=== PATIENT | female | born 1955 | race African-American/Black ===

== ENCOUNTER 2019-02-23 19:32 | Inpatient (IN) | payer OTHER ==
[~2019-02-23 19:32] MED LIST: Iopamidol-370 76% 500 ML 1 ML ONE
[2019-02-23] MEDS ORDERED: Rocuronium Bromide 50 MG/5 ML VIAL ONE ×2 (19:35→19:38)
[2019-02-23] MEDS ORDERED: fentaNYL Citrate/PF 2,000 MCG in Sodium Chloride 0.9% 60 ML IV SCH ×2 (19:54→23:17)
--- NOTE | 2019-02-23 20:03 | RAD ---
EXAM: CHEST ONE VIEW HISTORY: Altered mental status. Post endotracheal tube and central line placement. COMPARISON: None FINDINGS: Endotracheal tube is noted in place with the tip overlying the T3-4 level and above the level of the haresh. A nasogastric tube is noted in place which courses into the left upper quadrant. A left subclavian central venous catheter is noted in place with tip overlying the expected location of the SVC. No pneumothorax is seen allowing for supine positioning of the patient which does limit evaluation. There is mild prominence of the bronchovascular markings secondary to shallow depth of in spiration and portable technique. Mild atelectasis is present at the left lung base. The lungs are otherwise clear. Mild degenerative changes are seen in the spine. There is right glenohumeral osteoar thropathy. Vascular calcifications are seen in the thoracic aorta. IMPRESSION: 1. No acute cardiopulmonary process. 2. Lines and tubes in place as described above. No pneumothorax is seen on this supine exam which prajapati s limit evaluation for a pneumothorax.
[2019-02-23 20:08] LABS: Hemoglobin 8.5 g/dL (12.0-16.0); Mean Corpuscular Volume 96.8 fL (78.0-98.0); Mean Platelet Volume 7.4 fL (7.4-10.4); Platelet Count 363 thou/uL (130-400); RBC Distribution Width 17.8 % (11.5-14.5); Red Blood Cell (RBC) Count 2.75 mill/uL (4.20-5.40); White Blood Cell (WBC) Count 20.1 thou/uL (4.8-10.8)
[2019-02-23 20:10] LABS: Actual Bicarbonate (HCO3a) 26.8 mEq/L (22-28); Analyzer IN Cardio ER; Base Excess (BEa) 2.6 mEq/L (-2.0 to +3.0); CO2 Tension 39.6 mmHg (35.0-45.0); Calcium, Ionized 1.21 mmol/L (1.12-1.30); Carboxyhemoglobin (COHb) 3.8 gm% (0.0-3.0); Hemoglobin (Hb) 9.3 g/dL (12.0-16.0); O2 Tension (PaO2) 117.6 mmHg (> 80.0); Potassium - ABG Lab 3.74 mmol/L (3.70-5.30); pH, Arterial 7.45 (7.35-7.45)
[2019-02-23 20:15] LABS: PTT 27.4 SEC (22.9-36.1); Prothrombin Time 13.3 SEC (12.0-14.7)
[2019-02-23 20:22] LABS: Bacteria/HPF None Seen HPF (None Seen); Bilirubin Negative (Negative); Blood, Urine Negative (Negative); Clarity Clear (Clear); Glucose, Urine (Dipstick) Normal (Negative); Leukocyte Negative Leu/uL (Negative); Nitrite Negative (Negative); Protein, Urine (Dipstick) 30 mg/dL (Neg-Trace); RBC/HPF 0-3 HPF (0-3); Squamous Epithelial None Seen HPF (0-3); Urobilinogen Normal mg/dL (Less than 2); WBC/HPF 0-3 HPF (0-3)
[2019-02-23] MEDS ORDERED: Fentanyl 100 MCG/2 ML VIAL ONE (20:22)
[2019-02-23 20:29] LABS: Anisocytosis MODERATE=16-30 cells (100X) (0-5/hpf); Band 7 % (5-11); Eosinophils 1 % (0-10); Helmet Cells SLIGHT = 2-5 cells (100X) (0-1/hpf); Lymphocytes 24 % (21-51); MDiff Complete? YES; Metamyelocyte 1 % (0-0); Monocytes 1 % (0-10); Neutrophil 66 % (42-75); Nucleated RBC 1 % (0); Ovalocytes SLIGHT = 2-5 cells (100X) (0-1/hpf); Poikilocytosis MODERATE=16-30 cells (100X) (0-5/hpf); Schistocytes SLIGHT = 2-5 cells (100X) (0-1/hpf); Tear Drops SLIGHT = 2-5 cells (100X) (0-1/hpf)
[2019-02-23 20:30] LABS: Amphetamine Not Detected (NotDetected); Barbiturates Screen Not Detected (NotDetected); Benzodiazepine Screen Not Detected (NotDetected); Cocaine Metabolite Screen Not Detected (NotDetected); Medtox Control Line Valid? VALID (VALID); Medtox Reader # READER 4; Methadone Not Detected (NotDetected); Methamphetamine Not Detected (NotDetected); Opiate Screen Not Detected (NotDetected); Oxycodone Screen Not Detected (NotDetected); Phencyclidine (PCP) Not Detected (NotDetected); THC/Cannabinoid Screen Detected (NotDetected); Tricyclic Screen Not Detected (NotDetected)
[2019-02-23 20:31] LABS: ALT (SGPT) 40 U/L (8-55); AST (SGOT) 12 U/L (5-34); Albumin 3.4 g/dL (3.4-4.8); Alkaline Phosphatase 86 U/L (40-110); Anion Gap 15 mmol/L (10-20); BUN (Urea Nitrogen) 37 mg/dL (9.8-20.1); Bilirubin, Total 0.2 mg/dL (0.2-1.2); CK (CPK) 32 U/L (29-168); Calc. Creatinine Clearance 0 mL/min (70-130); Calcium 9.2 mg/dL (7.8-10.44); Carbon Dioxide 25 mmol/L (23-31); Chloride 104 mmol/L (98-107); Estimated GFR-MDRD 58; Globulin 1.9 g/dL (2.4-3.5); Glucose 97 mg/dL (80-115); Potassium 4.1 mmol/L (3.5-5.1); Protein, Total 5.3 g/dL (6.0-8.3); Sodium 140 mmol/L (136-145)
[2019-02-23 20:37] LABS: Acetaminophen Less than 6.0 mcg/mL (10.0-30.0); Alcohol Less than 10 mg/dL (Less than 10); Lipase 25 U/L (8-78); Salicylate Less than 8.0 mg/dL (15.0-30.0)
[2019-02-23] MEDS ORDERED: Cefepime 2 GM VIAL ONE (20:52)
[2019-02-23] MEDS ORDERED: Propofol 1,000 MG/100 ML VIAL IV ONE (21:05)
[2019-02-23] MEDS ORDERED: Dexamethasone 4 mg/ml Vial ONE (21:25)
[2019-02-23] MEDS ORDERED: Midazolam HCl 5 mg/ml Vial ONE ×2 (21:25→21:58)
--- NOTE | 2019-02-23 21:38 | CT ---
CT BRAIN: 02/23/2019 PROVIDED CLINICAL HISTORY: Altered mental status. COMPARISON: None. FINDINGS: The ventricular system is normal in size and morphology. There is no evidence for intracranial hemorr jackson or mass effect. There is opacification of the nasal cavity and the visualized nasopharynx as wel l as partial opacification of the ethmoid air cells. The extracranial soft tissues and osseous struc tures appear otherwise unremarkable. IMPRESSION: No evidence for intracranial hemorrhage or mass effect. POS: [facility]
--- NOTE | 2019-02-23 21:41 | CT ---
CT ANGIOGRAM THORAX WITH IV CONTRAST AND 3D RECONSTRUCTIONS: HISTORY: Altered mental status. In and out of consciousness. Low blood pressure. COMPARISON: None. FINDINGS: No filling defects are seen within the central or segmental pulmonary arteries to suggest a pulmonary embolus. Vascular calcifications are seen in the coronary arteries as well as involving the thoracic aorta. The thoracic aorta is normal in caliber without evidence of an aortic dissection. An endotracheal tube is noted in place with the tip above the level of the haresh. Nasogastric tube i s noted in place, which courses into the stomach but is incompletely imaged. The stomach is distended with fluid and particulate matter, likely related to recent ingestion of a meal. There is no evidence of lymphadenopathy. There are mild ground glass densities in the upper lobes bilaterally with linear and minimal patchy d ensities at each lung base, probably related to scattered areas of atelectasis. No consolidation or p leural effusion is seen. There is no pneumothorax identified. There is bilateral glenohumeral osteoarthropathy, greater on the right. Degenerative changes are seen in the spine. IMPRESSION: 1. No CT evidence of pulmonary embolus involving the central or segmental pulmonary arteries. 2. Prominent vascular calcifications in the coronary arteries as well as involving the thoracic aorta . 3. Mild cardiomegaly. 4. Endotracheal tube and nasogastric tube in place. POS: [facility]
[2019-02-23] MEDS ORDERED: Fentanyl BOLUS 250 ML IVPB PRN (23:17)
[2019-02-23] MEDS ORDERED: Lorazepam 2 MG/ML VIAL SLOW IVP PRN (23:17)
[2019-02-23] MEDS ORDERED: Propofol BOLUS 1,000 MG/100 ML VIAL IV PRN (23:17)
[2019-02-23] MEDS ORDERED: Morphine 2 MG/ML SYRINGE SLOW IVP PRN (23:17)
--- NOTE | 2019-02-23 23:32 | HP ---
PRIMARY CARE PHYSICIAN: Dr. Green, located with [facility]. CHIEF COMPLAINT: Altered mental status and decreased responsiveness. 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 History is limited and obtained from ER physician and from spouse at bedside. Apparently, the patient had systolic blood pressure of 60s in the field. In the ER, she continued to remain hypotensive and was intubated for airway protection. She received IV Decadron as well as 1 L normal saline bolus with blood pressure normotensive thereafter. Blood cultures were obtained, left subclavian triple-lumen catheter was placed, and patient was empirically administered Levaquin, cefepime, and placed on propofol for sedation. ABG post intubation was unremarkable. CBC revealed a white blood cell count of 20.1 with a BUN and creatinine of 37/1.14. Toxicology screen was positive for cannabis. Salicylate and Tylenol levels and urinalysis were unremarkable. CTA chest was also unremarkable. At bedside, the patient is intubated and sedated. She is accompanied by spouse who provides a limited history. Spouse denies any recent illnesses or changes in patient's medications except for steroid decreased. Once again, spouse notes patient took a 20 mg tablet of prednisone yesterday instead of her tapered 40 mg dosage. He notes the patient has been nauseated, but with no reported vomiting, diarrhea, or dysuria. No prior similar complaints. Coagulation profile was unremarkable. PAST MEDICAL HISTORY: Suspected giant-cell arteritis with recent biopsy 2 weeks ago, chronically maintained on oral prednisone for the past 2 months, initially 60 mg per day, recently decreased 2 weeks ago to 40 mg per day, morbid obesity, hypertension, dyslipidemia. PAST SURGICAL HISTORY: Cholecystectomy, recent right temporal artery biopsy. SOCIAL HISTORY: The patient is , lives at home with the spouse. No reported tobacco or alcohol use. ALLERGIES: NONE. REVIEW OF SYSTEMS: Unable to obtain as patient is intubated. HOME MEDICATIONS: Will be reviewed once admission medication reconciliation is reconciled. FAMILY HISTORY: No chronic medical comorbidities reported in the family members. PHYSICAL EXAMINATION: VITAL SIGNS: Temperature 97.2, pulse 98, sinus rhythm, blood pressure currently 124/73, reportedly systolic blood pressure of 60s in the field and initial documented blood pressure in the ER 185/79, oxygen saturation 99% on ventilator, respirations 16 to 18. GENERAL APPEARANCE: This is an elderly female, who is intubated and sedated and intermittently restless. HEENT: Normocephalic, atraumatic. No obvious facial asymmetry. There is a healing scar in the right uatsdin. Positive ET tube and OG tube noted. CARDIOVASCULAR: S1, S2. Regular rate and rhythm. No harsh murmurs. No reproducible chest wall tenderness. There is a left subclavian triple-lumen catheter, appearing clean and intact. LUNGS: Bilateral equal air entry on anterior auscultation. Nonlabored respirations. No wheezing or rales. ABDOMEN: Soft, nontender, nondistended. EXTREMITIES: No appreciable edema in the lower extremities. No cyanosis or deformities noted. SKIN: Warm to touch without rash or pallor or abrasion. GENITOURINARY: Indwelling Norris catheter with yellow-colored urine. LABORATORY VALUES: WBC 20.1, hemoglobin and hematocrit 8.5/26.6, and platelets 363. Sodium 140, potassium 4.1, chloride 104, bicarb 25, glucose 97, BUN and creatinine 37/1.14, total protein 5.3, albumin 3.4. LFTs unremarkable. Ammonia 22. Urinalysis negative. Urine drug screen positive for cannabis. Salicylate level less than 8. Tylenol level less than 6. ABG post intubation; 7.45/118/40/93 [place] [address]/40/5. IMAGING: CTA chest negative for pulmonary embolism. Noncontrast head CT negative for any acute intracranial pathology. ASSESSMENT: 1. Acute encephalopathy of unclear etiology. The patient intubated in the emergency room for airway protection with noted decreased responsiveness and reported hypotension on admission. She is currently intubated and sedated. ICU physician has been consulted for ventilator management. She received IV steroids noting concerns for secondary adrenal insufficiency and has received IV Decadron in the ER with normotensive blood pressure readings. Furthermore, she has had blood cultures obtained and administered IV fluids and empiric IV antibiotics, and we will continue to monitor for any possible infectious etiologies. 2. Ventilator-dependent respiratory failure. Patient intubated for airway protection due to encephalopathy. ICU doctor consulted for ventilator management. 3. Hypotension, resolved. Possibly secondary to secondary adrenal insufficiency as patient is on chronic steroids for suspected giant-cell arteritis. The patient was recently tapered to 40 mg once daily after one month of 60 mg once daily, but only took half the dose one day prior. We will continue daily prednisone at home dose. 4. History of recent suspected giant-cell arteritis. The patient underwent recent temporal artery biopsy results unknown. She has been currently maintained on oral prednisone, which will be continued. 5. History of hypertension. The patient was initially hypotensive, but is now normotensive. We will monitor blood pressure. 6. Morbid obesity, unspecified BMI. Gastrointestinal prophylaxis: Start IV Pepcid, noting chronic steroid use and to minimize stress ulcers. Deep venous thrombosis prophylaxis: Low-molecular weight heparin. Check a.m. labs, 02/24/2019. CODE STATUS: Full code. DISPOSITION: The patient will be admitted as inpatient status to ICU. Plan of care discussed with the patient's spouse, Stanislav at bedside in the ER. Job ID: [id number] MTDD
[2019-02-23 23:56] VITALS: BMI 40.2
[2019-02-24] MEDS ORDERED: Famotidine/PF 20 mg/2ml Vial SLOW IVP SCH (00:15)
[2019-02-24] MEDS: Propofol 1,000 MG/100 ML VIAL IV PRN ×4 (00:43→08:54)
[2019-02-24 02:04] LABS: Troponin I Less than 0.010 ng/mL (< 0.028)
[2019-02-24 04:40] LABS: #Basophils 0.1 thou/uL (0.0-0.2); #Eosinphils 0.1 thou/uL (0.0-0.7); #Monocytes 0.3 thou/uL (0.11-0.59); #Neutrophils 12.7 thou/uL (1.40-6.50); %Basophils 0.4 % (0.0-1.0); %Eosinophils 0.4 % (0.0-10.0); %Lymphocytes 18.4 % (21.0-51.0); %Neutrophils 78.7 % (42.0-75.0); Hemoglobin 7.8 g/dL (12.0-16.0); Mean Corpuscular HGB CONC 32.7 g/dL (32.0-36.0); Mean Corpuscular Hemoglobin 31.6 pg (27.0-31.0); Mean Corpuscular Volume 96.4 fL (78.0-98.0); Mean Platelet Volume 7.3 fL (7.4-10.4); Platelet Count 343 thou/uL (130-400); RBC Distribution Width 17.6 % (11.5-14.5); Red Blood Cell (RBC) Count 2.48 mill/uL (4.20-5.40); White Blood Cell (WBC) Count 16.2 thou/uL (4.8-10.8)
[2019-02-24 05:15] LABS: Anion Gap 13 mmol/L (10-20); BUN (Urea Nitrogen) 33 mg/dL (9.8-20.1); Calc. Creatinine Clearance 104 mL/min (70-130); Calcium 8.9 mg/dL (7.8-10.44); Carbon Dioxide 26 mmol/L (23-31); Chloride 106 mmol/L (98-107); Estimated GFR-MDRD 66; Glucose 118 mg/dL (80-115); Potassium 4.4 mmol/L (3.5-5.1); Sodium 141 mmol/L (136-145)
[2019-02-24 07:33] LABS: Actual Bicarbonate (HCO3a) 26.3 mEq/L (22-28); Base Excess (BEa) 2.5 mEq/L (-2.0 to +3.0); Calcium, Ionized 1.19 mmol/L (1.12-1.30); Carboxyhemoglobin (COHb) 1.4 gm% (0.0-3.0); Hemoglobin (Hb) 7.6 g/dL (12.0-16.0); O2 Tension (PaO2) 114.2 mmHg (> 80.0); Potassium - ABG Lab 4.12 mmol/L (3.70-5.30); pH, Arterial 7.47 (7.35-7.45)
[2019-02-24 07:34] LABS: Puncture Site L.R.
[2019-02-24] MEDS: predniSONE 20 MG TAB PO SCH (07:53)
[2019-02-24] MEDS ORDERED: FLU VACC QS2019-20(6MOS UP)/PF 60 MCG/0.5 ML SYRINGE IM ONE (09:00)
[2019-02-24] MEDS ORDERED: Enoxaparin Sodium 40 MG/0.4 ML SYRINGE SC SCH (09:00)
--- NOTE | 2019-02-24 10:45 | PDOC.HOSPP ---
- Subjective Encounter Date: 02/24/19 Encounter Time: 12:50 Subjective: Patient extubated. Sore throat and hoarse voice, otherwise feeling much better. No confusion this AM. BP holding up well. - Objective Vital Signs & Weight: Vital Signs (12 hours) Temp Pulse Resp BP Pulse Ox 02/24/19 10:35 64 124/67 02/24/19 10:00 12 02/24/19 08:00 98.0 F 12 100 02/24/19 07:13 62 107/60 02/24/19 06:00 16 02/24/19 04:00 97.8 F 16 02/24/19 03:36 70 114/66 02/24/19 02:00 16 02/24/19 00:00 16 02/23/19 23:19 87 141/75 H 02/23/19 22:45 97.8 F 98 Weight Weight 256 lb 13.416 oz Most Recent Monitor Data Heart Rate from ECG 66 NIBP 125/68 NIBP BP-Mean 87 Respiration from ECG 18 SpO2 100 I&O: 02/23/19 02/24/19 02/25/19 06:59 06:59 06:59 Intake Total 258 75 Output Total 1060 355 Balance -802 -280 Result Diagrams: 02/24/19 04:00 02/24/19 04:00 Hospitalist ROS - Review of Systems Constitutional: denies: fever, chills Respiratory: denies: cough, dry, shortness of breath Cardiovascular: denies: chest pain, palpitations, orthopnea Gastrointestinal: denies: nausea, vomiting, abdominal pain - Medication Medications: Active Medications Generic Name Dose Route Start Last Admin Trade Name Usha PRN Reason Stop Dose Admin Enoxaparin Sodium 40 mg 02/24/19 09:00 02/24/19 08:54 Lovenox SC 40 mg 0900 DANNY Administration Fentanyl Citrate 2,000 mcg/ 100 mls @ 0 mls/hr 02/23/19 23:17 02/24/19 10:25 Sodium Chloride IV 03/25/19 23:17 100 mls INF DANNY Administration Protocol Per Protocol Prednisone 40 mg 02/24/19 08:00 02/24/19 07:53 Prednisone PO 40 mg QAM-WM DANNY Administration Propofol 1,000 mg 02/23/19 23:17 02/24/19 08:54 Diprivan IV 03/25/19 23:17 1,000 mg INF PRN Administration TO ACHIEVE GOAL RASS Protocol - Exam General Appearance: NAD, awake alert Eye: anicteric sclera ENT: no oropharyngeal lesions, moist mucosa ENT - other findings: hoarse voice, almost can't hear anything she says Heart: RRR, no murmur, no gallops, no rubs Respiratory: CTAB, no wheezes, no rales, no ronchi Gastrointestinal: soft, non-tender, non-distended, normal bowel sounds Psychiatric: normal affect, normal behavior Hosp A/P (1) Hypotension Status: Resolved Plan: Possibly due to adrenal insufficiency vs infection, resolved with fluids and steroids (2) Acute encephalopathy Code(s): G93.40 - ENCEPHALOPATHY, UNSPECIFIED Status: Acute (3) Leukocytosis Code(s): D72.829 - ELEVATED WHITE BLOOD CELL COUNT, UNSPECIFIED Status: Acute (4) Giant cell arteritis Code(s): M31.6 - OTHER GIANT CELL ARTERITIS Status: Acute (5) Acute respiratory failure Code(s): J96.00 - ACUTE RESPIRATORY FAILURE, UNSP W HYPOXIA OR HYPERCAPNIA Status: Acute (6) HTN (hypertension) Code(s): I10 - ESSENTIAL (PRIMARY) HYPERTENSION Status: Chronic Qualifiers: Hypertension type: essential hypertension Qualified Code(s): I10 - Essential (primary) hypertension - Plan Steroids, IV fluids, Rocephin Pulmonology consult- extubated this AM. Doing much better. Uncertain source of episode but possibly related to tapering steroids. Blood cultures pending
[2019-02-24] MEDS: Acetaminophen 325 MG TAB PO PRN ×2 (14:17→17:55)
--- NOTE | 2019-02-24 16:22 | PDOC.EVN ---
Event Note - Event Note Event Note: Spoke with Hospitalist at [facility] and he accepted transfer for continuation of her care there, as per family request.
[2019-02-24] MEDS: Cyclobenzaprine 10 MG TAB PO PRN ×2 (17:50→20:01)
[2019-02-24] MEDS: cefTRIAXone\\ROCEPHIN 1 GM in Sodium Chloride 0.9% 100 ML IVPB SCH (20:01)
[2019-02-24] MEDS: Zolpidem Tartrate 5 MG TAB PO PRN (21:05)
[2019-02-25] MEDS ORDERED: Ondansetron ODT 4 MG TAB PO PRN (03:23)
[2019-02-25] MEDS: Ondansetron PF 4 MG/2 ML Vial IVP PRN ×3 (03:29→17:37)
[2019-02-25] MEDS ORDERED: Promethazine HCl 12.5 MG in Sodium Chloride 0.9% 50 ML IVPB PRN (03:37)
[2019-02-25] MEDS ORDERED: Sodium Chloride 0.9% (PF) 10 ML VIAL FS PRN (03:56)
[2019-02-25] MEDS ORDERED: Pantoprazole 40 MG VIAL IVP SCH (04:00)
[2019-02-25 04:50] LABS: Hemoglobin 5.7 g/dL (12.0-16.0)
--- NOTE | 2019-02-25 08:11 | CON ---
DATE OF CONSULTATION: 02/24/2019 HISTORY OF PRESENT ILLNESS: Darrel Beard is a very pleasant 63-year-old female who has been followed over at [facility]. She has recently been followed by Dr. Sebas Rahman. She had complaints of right-sided headache and also some visual changes in her right eye, so she underwent a temporal artery biopsy. I am told that a temporal artery biopsy was negative for evidence of temporal arteritis. She has been on 60 mg a day of prednisone for a month for these symptoms. She was cut back to 40 mg a day recently, but hates taking the prednisone. She was mechanically ventilated last night when she presented with altered mental status. She awakens and follows commands today, so I was consulted to assist in weaning from mechanical ventilation. PAST MEDICAL HISTORY: Remarkable for lipid disorder, hypertension, cholecystectomy, recent headache and recent right eye complaints. SOCIAL HISTORY: Nonsmoker and nondrinker. Nondrug user. ALLERGIES: SHE HAS NO DRUG ALLERGIES. REVIEW OF SYSTEMS: Not obtainable since she was intubated when I met her this morning. Her provided reasonably good history. PHYSICAL EXAMINATION: VITAL SIGNS: Stable overnight. Heart rate was in the 70s, respiratory rate was in the teens. Her minute volume was 8 L a minute. Sedation was held this morning. She had excellent spontaneous tidal volumes. HEENT: Unremarkable. Right temporal artery area is shaved with an incision that is healing without erythema. NECK: Supple. No lymphadenopathy. LUNGS: Clear. HEART: Regular rhythm. S1 and S2 are normal. ABDOMEN: Soft and nontender. EXTREMITIES: Without clubbing, cyanosis, or edema. LABORATORY DATA: White count 16.2, hemoglobin 7.8, platelets 343. Electrolytes are normal. BUN 33, creatinine 1.02, pH 7.47, CO2 of 37, pO2 of 114. Coags were normal. Urinalysis unremarkable. Drug screen was negative other than cannabinoids. Alcohol was 0. IMPRESSION: Encephalopathy of unclear etiology. Given her dramatic improvement , I would not think that there would be any reason to perform a lumbar puncture at this time. did tell me that a lumbar puncture was scheduled for this week as part of her workup for her complaints at [facility]. I recommended extubation. This was done successfully. Post extubation evaluation showed that she was stable for transfer. Her was requesting that she be transferred to [facility]. I do believe she is medically stable to be transferred to [facility] and she has primary [facility] health insurance. I will follow her as long as she is in [facility]. CRITICAL CARE TIME: 40 minutes. Job ID: [id number] MTDMarcella
--- NOTE | 2019-02-25 08:36 | PDOC.HOSPP ---
- Subjective Encounter Date: 02/25/19 Encounter Time: 11:00 Subjective: Patient had vomiting of large amount of blood this AM. Some abd pain. Now improved. H/H dropped this AM, just transfused 3 units PRBC and feeling better. Seen by Dr. Alva and awaiting EGD to determine source of bleeding. Attempted transfer to [facility] yesterday, but no ICU bed available there yet. If patient downgrades here may be able to get a bed easier. - Objective Vital Signs & Weight: Vital Signs (12 hours) Temp Pulse Ox 02/25/19 08:00 97 02/25/19 06:30 98.0 F 02/25/19 06:26 99.1 F 02/25/19 06:00 98.0 F 02/25/19 05:42 98.7 F 02/25/19 03:00 97.9 F 02/25/19 00:00 98.2 F Weight Admit Weight 257 lb Weight 256 lb 13.416 oz Most Recent Monitor Data Heart Rate from ECG 79 NIBP 141/76 NIBP BP-Mean 97 Respiration from ECG 18 SpO2 95 I&O: 02/24/19 02/25/19 02/26/19 06:59 06:59 06:59 Intake Total 258 1371 350 Output Total 1060 2440 100 Balance -802 -1069 250 Result Diagrams: 02/25/19 12:00 02/24/19 04:00 Hospitalist ROS - Review of Systems Constitutional: denies: fever, chills Respiratory: denies: cough, shortness of breath Cardiovascular: denies: chest pain, palpitations, orthopnea Gastrointestinal: reports: nausea, vomiting, abdominal pain. denies: diarrhea, constipation - Medication Medications: Active Medications Generic Name Dose Route Start Last Admin Trade Name Freq PRN Reason Stop Dose Admin Acetaminophen 325 mg 02/24/19 13:08 02/24/19 17:55 Tylenol PO 325 mg Q4H PRN Administration Headache Cyclobenzaprine HCl 10 mg 02/24/19 13:08 02/24/19 20:01 Flexeril PO 10 mg QPM PRN Administration Muscle Spasm Ceftriaxone Sodium 1 gm/ 100 mls @ 200 mls/hr 02/24/19 21:00 02/24/19 20:01 Sodium Chloride IVPB 100 mls Q24HR DANNY Administration Fentanyl Citrate 2,000 mcg/ 100 mls @ 0 mls/hr 02/23/19 23:17 02/24/19 10:25 Sodium Chloride IV 03/25/19 23:17 100 mls INF DANNY Administration Protocol Per Protocol Ondansetron HCl 4 mg 02/25/19 03:23 02/25/19 03:29 Zofran IVP 4 mg Q6H PRN Administration Nausea/Vomiting Prednisone 40 mg 02/24/19 08:00 02/24/19 07:53 Prednisone PO 40 mg QAM-WM DANNY Administration Propofol 1,000 mg 02/23/19 23:17 02/24/19 08:54 Diprivan IV 03/25/19 23:17 1,000 mg INF PRN Administration TO ACHIEVE GOAL RASS Protocol Zolpidem Tartrate 5 mg 02/24/19 13:08 02/24/19 21:05 Ambien PO 5 mg HS PRN Administration Insomnia - Exam General Appearance: NAD, awake alert ENT: moist mucosa ENT - other findings: voice much improved today Heart: RRR, no murmur, no gallops, no rubs Respiratory: CTAB, no wheezes, no rales, no ronchi Gastrointestinal: soft, non-distended, normal bowel sounds, no palpable masses Gastrointestinal - other findings: mild TTP ESTEBAN Psychiatric: normal affect, normal behavior, A&O x 3 Hosp A/P (1) GI bleed Code(s): K92.2 - GASTROINTESTINAL HEMORRHAGE, UNSPECIFIED Status: Acute (2) Hypotension Status: Resolved (3) Acute encephalopathy Code(s): G93.40 - ENCEPHALOPATHY, UNSPECIFIED Status: Acute (4) Leukocytosis Code(s): D72.829 - ELEVATED WHITE BLOOD CELL COUNT, UNSPECIFIED Status: Acute (5) Giant cell arteritis Code(s): M31.6 - OTHER GIANT CELL ARTERITIS Status: Ruled-out (6) Acute respiratory failure Code(s): J96.00 - ACUTE RESPIRATORY FAILURE, UNSP W HYPOXIA OR HYPERCAPNIA Status: Acute (7) HTN (hypertension) Code(s): I10 - ESSENTIAL (PRIMARY) HYPERTENSION Status: Chronic Qualifiers: Hypertension type: essential hypertension Qualified Code(s): I10 - Essential (primary) hypertension (8) Anemia due to blood loss, acute Code(s): D62 - ACUTE POSTHEMORRHAGIC ANEMIA Status: Acute - Plan Biopsy reportedly negative for Giant Cell Arteritis This AM patient with Nausea and vomited a large amount of blood Bleeding likely due to past month of high dose steroids causing ulcer, possibly source of her initial hypotension on arrival PPI IV and Dr. Alva consulted, receiving blood transfusion Steroids, IV fluids, Rocephin Pulmonology consult- extubated yesterday. Blood cultures pending
[2019-02-25] MEDS ORDERED: Famotidine/PF 20 mg/2ml Vial SLOW IVP SCH (09:00)
[2019-02-25] MEDS: Calcium Carbonate + Vit D 1 TAB PO SCH (09:10)
[2019-02-25] MEDS: Atorvastatin Calcium 40 MG TAB PO SCH (09:10)
[2019-02-25] MEDS: Escitalopram Oxalate 10 mg Tablet PO SCH (09:10)
[2019-02-25] MEDS: predniSONE 20 MG TAB PO SCH (09:10)
[2019-02-25] MEDS ORDERED: Lidocaine 1% PF 5 ML VIAL ONE (09:47)
[2019-02-25] MEDS ORDERED: Succinylcholine Chloride 20 MG/ML 10 ml SYRINGE FS ONE (09:47)
[2019-02-25] MEDS ORDERED: Metoprolol Tartrate 5 MG/5 ML VIAL ONE (09:47)
[2019-02-25] MEDS ORDERED: Labetalol HCl 100 MG/20 ML VIAL ONE (09:47)
[2019-02-25] MEDS ORDERED: PROPOFOL 200 MG/20 ML VIAL ONE (09:47)
[2019-02-25] MEDS ORDERED: EPINEPHrine 1 MG/10 ML Abboject SYRINGE ONE (09:49)
--- NOTE | 2019-02-25 09:59 | CON ---
DATE OF CONSULTATION: 02/25/2019 REASON FOR CONSULTATION: Hematemesis. HISTORY OF PRESENT ILLNESS: Darrel Beard is a 63-year-old woman, who was admitted to the hospital a couple of days ago with hypotension. She has a recent history of temporal artery biopsy performed a couple of weeks ago at [facility] for suspected giant cell arteritis, that biopsy was evidently negative , but she has been on high-dose steroids for a while now, and initially 60 mg per day for the past couple of months, then decreased to 40 mg per day a couple of weeks ago. The patient has been having some issues with muscle spasticity and mood disturbances on the steroids and so it is unclear, but she may have been trying to taper too fast at home. At any rate, on presentation, she was hypotensive with altered mental status and adrenal insufficiency was suspected. She was briefly intubated and on the ventilator, able to be extubated yesterday. She has received Decadron. She was started on IV Pepcid upon presentation here. Last night, she had sudden onset of nausea and had emesis of reported 400 mL of bright red blood and clots. This had never happened before. She was briefly hypotensive again, but this quickly normalized and she has been hemodynamically stable the past several hours. She has not had any recurrent episode of hematemesis. There has been no witnessed melena here. She says her bowel movements have been normal at home, though she may have had some dark stools a couple of days ago just prior to presentation, note that on admission her hemoglobin was 8.5 this did drop to 5.7 this morning following her episode of hematemesis. She is now getting the last of 3 units of RBCs, and again is hemodynamically stable. She reports this has never happened to her before. She has no prior gastrointestinal history. No history of ulcer disease. No prior endoscopy. She does not take any chronic acid suppression. She does take 800 mg of ibuprofen most days in addition to the prednisone already mentioned. REVIEW OF SYSTEMS: Full review of systems including constitutional; head, eyes, ears, nose, and throat; GI; ; cardiovascular; respiratory; musculoskeletal; neurologic systems is negative except as noted in the HPI. PAST MEDICAL HISTORY: Hypertension, hyperlipidemia, obesity, cholecystectomy, recent right temporal artery biopsy. SOCIAL HISTORY: The patient is and lives with her . No alcohol or tobacco use. FAMILY HISTORY: Noncontributory. ALLERGIES: NONE. MEDICATIONS: 1. Tylenol p.r.n. 2. Ceftriaxone 1 g q.24 hours IV. 3. Flexeril. 4. Fentanyl. 5. Zofran. 6. Prednisone 40 mg daily. 7. Ambien 5 mg at bedtime. PHYSICAL EXAMINATION: VITAL SIGNS: Pulse 83, blood pressure 136/77, 99% oxygen saturation on room air , temperature is 99.1. GENERAL: A 63-year-old woman, lying in bed comfortably, in no distress. MENTAL: She is alert and oriented. SKIN: No jaundice. No rashes were palpable. EYES: No scleral icterus. Extraocular movements are intact. ENT: Mucous membranes are moist. No oral lesions. LYMPH: No submandibular or supraclavicular lymphadenopathy. THYROID: She does have some nontender thyromegaly. No nodularity. Nontender to palpation. HEART: Regular rate and rhythm. LUNGS: Clear to auscultation bilaterally. ABDOMEN: Bowel sounds are present. Soft. There is some mild tenderness to palpation in the epigastrium. No guarding or rebound tenderness. EXTREMITIES: No peripheral edema. VESSELS: Radial pulses 2+ bilaterally. NEURO: Cranial nerves 2 through 12 intact bilaterally. No focal deficits. LABORATORY STUDIES: Hemoglobin 5.7, hematocrit 16.8, this is declined from hemoglobin 8.5, hematocrit 26.6 on admission; WBC 16.2; platelets 343. INR 1.0. Sodium 141, potassium 4.4, BUN 33, creatinine 1.02, glucose 118. Troponin negative. Calcium 8.9. Urinalysis negative. Urine drug screen positive for cannabinoids. Plasma alcohol negative. Acetaminophen negative. ASSESSMENT AND PLAN: 1. Hematemesis, single large episode this morning. 2. Acute on chronic blood-loss anemia. It certainly does appear the patient had significant gastrointestinal bleeding episode overnight. Given her hemodynamic stability over the past several hours, I suspect that whatever was bleeding has stopped for now, she is certainly at high risk for development of peptic ulcer disease given all of the NSAIDs and steroids that she has been taking, Protonix 40 mg IV q.12 hours has been initiated. We will need to perform EGD today, so we will get this scheduled. Monitor hemoglobin and hematocrit post transfusion and transfuse further as needed. The patient and her are very much wanting to be transferred to [facility], where she receives most of her care. I think this is reasonable, but we are going to try to go ahead and get the procedure done prior to transfer. Thank you for the consultation. Please call anytime with questions or concerns. Job ID: [id number] HENRI
[2019-02-25] MEDS ORDERED: Bacteriostatic Water 30 ML VIAL FS PRN (10:42)
[2019-02-25] MEDS ORDERED: methylPREDNISolone Sod Succ 40 MG VIAL IVP SCH (10:45)
[2019-02-25] MEDS ORDERED: hydrALAZINE 20 MG/ML VIAL ONE (13:02)
[2019-02-25] MEDS ORDERED: Ondansetron HCl/PF 4 MG/2 ML Vial IVP PRN ×2 (13:07→13:11)
[2019-02-25] MEDS ORDERED: hydrALAZINE 20 MG/ML VIAL SLOW IVP PRN (13:07)
--- NOTE | 2019-02-25 13:24 | OP ---
DATE OF PROCEDURE: 02/25/2019 PATTERN DUPLICATOR SURGEON: None. PROCEDURE PERFORMED: Esophagogastroduodenoscopy with control of hemorrhage. INDICATIONS: 1. Hematemesis. 2. Acute blood loss anemia. 3. The patient has a recent history of high-dose steroids and ongoing high-dose nonsteroidal anti-inflammatory drug use. MEDICATIONS: See Anesthesia record. FINDINGS: After discussion of the risks, benefits, and alternatives of the procedure, informed consent was obtained and witnessed. Pre-endoscopic cardiopulmonary examination was satisfactory. Time-out was performed before sedation was achieved. Sedation was achieved with Anesthesia assistance in the endoscopy unit. The patient was initially placed under propofol sedation. A Pentax adult therapeutic upper endoscope was placed into the oropharynx and passed through the cricopharyngeus under direct visualization. The esophageal mucosa appeared normal throughout with a normal-appearing Z-line. There was no evidence of any esophageal varices. The endoscope was passed through the GE junction and into the stomach. In the stomach, there was a significant amount of fresh blood and clots. Given this, the endoscope was removed and the patient was endotracheally intubated by Anesthesia staff and placed under general anesthesia for airway protection. At this point, I reintroduced the endoscope back down into the stomach. I was able to completely suction out all blood and clots from the gastric mucosa and get a good examination of the gastric lining as well as the mucosa of the first and second portions of the duodenum. The duodenal mucosa appeared normal. In the stomach, there was a single large deep ulceration. It measures at least 2 cm in diameter. It is located in the proximal stomach on the lesser curvature. There is a single visible vessel within the ulcer base with overlying blood clot and some oozing of blood around the base of the clot. I injected around this vessel with 10 mL of epinephrine submucosally. I then used the 10-Tajik Gold probe to lift the clot off the base of the vessel. At this point, the vessel continued to bleed actively. I applied electrocautery to the visible vessel extensively, and also injected eight more mL of epinephrine submucosally. With this, I was able to achieve good hemostasis. Following these maneuvers, I suctioned out excess blood from the stomach and re-examined the gastric lining again. There were no other mucosal abnormalities throughout the stomach. At this point, the upper endoscope was completely withdrawn and the patient allowed to recover. The patient tolerated the procedure well. There were no immediate postprocedure complications. IMPRESSION: 1. Single large 2-cm ulcer in the proximal stomach on the lesser curvature, with actively bleeding visible vessel. Hemostasis was achieved with injection of 18 mL submucosal epinephrine and electrocautery with 10-Tajik probe. 2. Otherwise, normal esophagogastroduodenoscopy. RECOMMENDATIONS: 1. Continue IV proton pump inhibitor. 2. Avoid any nonsteroidal anti-inflammatory drugs going forward. 3. Check H pylori serology and treat if positive. 4. Clear liquid diet. 5. We will plan for repeat EGD tomorrow for second look at the ulcer site and assurance of continued hemostasis. Please call anytime with questions or concerns. Job ID: [id number]
[2019-02-25] MEDS: Sodium Chloride 0.45% 1,000 ML IV SCH (16:35)
[2019-02-25] MEDS: traMADol HCl 50 MG TAB PO PRN (17:42)
[2019-02-25] MEDS: cefTRIAXone\\ROCEPHIN 1 GM in Sodium Chloride 0.9% 100 ML IVPB SCH (19:40)
[2019-02-25] MEDS: Zolpidem Tartrate 5 MG TAB PO PRN (19:41)
[2019-02-25] MEDS: Pantoprazole 40 MG VIAL IVP SCH (19:41)
[2019-02-25] MEDS: Cyclobenzaprine 10 MG TAB PO PRN (19:41)
[2019-02-26 05:26] LABS: #Eosinphils 0.1 thou/uL (0.0-0.7); #Lymphocytes 4.1 thou/uL (1.20-3.40); #Monocytes 0.9 thou/uL (0.11-0.59); %Basophils 0.1 % (0.0-1.0); %Eosinophils 0.3 % (0.0-10.0); %Lymphocytes 22.5 % (21.0-51.0); %Neutrophils 72.1 % (42.0-75.0); Hemoglobin 9.4 g/dL (12.0-16.0); Mean Corpuscular HGB CONC 33.3 g/dL (32.0-36.0); Mean Corpuscular Hemoglobin 30.7 pg (27.0-31.0); Mean Corpuscular Volume 92.3 fL (78.0-98.0); Mean Platelet Volume 7.7 fL (7.4-10.4); Platelet Count 221 thou/uL (130-400); RBC Distribution Width 16.3 % (11.5-14.5); Red Blood Cell (RBC) Count 3.05 mill/uL (4.20-5.40)
[2019-02-26 05:39] LABS: Anion Gap 7 mmol/L (10-20); BUN (Urea Nitrogen) 35 mg/dL (9.8-20.1); Calc. Creatinine Clearance 119 mL/min (70-130); Calcium 8.3 mg/dL (7.8-10.44); Carbon Dioxide 29 mmol/L (23-31); Chloride 110 mmol/L (98-107); Estimated GFR-MDRD 78; Glucose 89 mg/dL (80-115); Potassium 4.2 mmol/L (3.5-5.1); Sodium 142 mmol/L (136-145)
[2019-02-26] MEDS: Sodium Chloride 0.45% 1,000 ML IV SCH ×2 (06:18→16:57)
--- NOTE | 2019-02-26 08:40 | PRG ---
DATE OF SERVICE: 02/25/2019 SUBJECTIVE: Darrel Beard has found out a large gastric ulcer. Her says she has been complaining of epigastric discomfort for several weeks. She is tentatively on the schedule to have a repeat evaluation of this large ulcer tomorrow via esophagogastroduodenoscopy. Apparently, she has been taking 40 mg of prednisone. She has been taking Advil every day for headaches. Because of her GI bleed that started last night, her transfer to the [facility] has been held. Her family actually wants her transfer to be held at this point in time. Fortunately, she underwent endoscopy today, an actively bleeding ulcer with a visible vessel was cauterized and injected and hopefully this will be enough to solve the problem. I have explained to the family that if she bleeds again, and it is not controllable with endoscopy, she will need abdominal surgery . OBJECTIVE: GENERAL: She actually is quite pleasant cooperative today. She is in no distress when I saw her. VITAL SIGNS: She is afebrile. Blood pressure is running 120/72, heart rate is in the 70s. LUNGS: Clear. HEART: Regular rhythm and soft. LABORATORY DATA: Her hemoglobin fell to 5.7 this morning . She is on broad antimicrobial therapy . Her cultures were negative presenting encephalopathy was meningitis related given her rapid overnight improvement. She had a bacterial meningitis would be extremely unlikely that she has been . Cultures remain negative. We need to p.r.n. dose 2 mg which she does while she has active seizure. There is no evidence she has IV Protonix answered all their questions for 25 minutes after . Job ID: [id number]
[2019-02-26] MEDS: Calcium Carbonate + Vit D 1 TAB PO SCH (08:45)
[2019-02-26] MEDS: Escitalopram Oxalate 10 mg Tablet PO SCH (08:45)
[2019-02-26] MEDS: Atorvastatin Calcium 40 MG TAB PO SCH (08:45)
[2019-02-26] MEDS: Pantoprazole 40 MG VIAL IVP SCH ×2 (08:45→20:47)
[2019-02-26] MEDS ORDERED: methylPREDNISolone Sod Succ 40 MG VIAL IVP SCH ×2 (09:00)
[2019-02-26] MEDS ORDERED: PROPOFOL 200 MG/20 ML VIAL ONE (09:21)
[2019-02-26] MEDS: Ondansetron PF 4 MG/2 ML Vial IVP PRN (09:43)
--- NOTE | 2019-02-26 11:58 | PDOC.HOSPP ---
- Subjective Encounter Date: 02/26/19 Encounter Time: 12:00 Subjective: Patient about to go down for repeat EGD. Still with nausea and some ESTEBAN pain, but improved. No more vomiting of blood. Vitas stable overnight. - Objective Vital Signs & Weight: Vital Signs (12 hours) Temp Pulse Ox 02/26/19 08:00 100 02/26/19 07:00 98.5 F 02/26/19 01:00 98.8 F Weight Admit Weight 257 lb Weight 256 lb 13.416 oz Most Recent Monitor Data Heart Rate from ECG 71 NIBP 140/76 NIBP BP-Mean 97 Respiration from ECG 16 SpO2 100 I&O: 02/25/19 02/26/19 02/27/19 06:59 06:59 06:59 Intake Total 1371 1466 0 Output Total 2440 2004 450 Balance -1069 -539 -450 Result Diagrams: 02/26/19 04:00 02/26/19 04:00 Hospitalist ROS - Review of Systems Constitutional: denies: fever, chills Respiratory: denies: cough, shortness of breath Cardiovascular: denies: chest pain, palpitations, orthopnea Gastrointestinal: reports: nausea, abdominal pain. denies: vomiting - Medication Medications: Active Medications Generic Name Dose Route Start Last Admin Trade Name Freq PRN Reason Stop Dose Admin Acetaminophen 325 mg 02/24/19 13:08 02/24/19 17:55 Tylenol PO 325 mg Q4H PRN Administration Headache Atorvastatin Calcium 40 mg 02/25/19 09:00 02/26/19 08:45 Lipitor PO 40 mg DAILY DANNY Administration Calcium/Vitamin D 1 tab 02/25/19 09:00 02/26/19 08:45 Caltrate 600 + Vit D PO 1 tab DAILY DANNY Administration Cyclobenzaprine HCl 10 mg 02/24/19 13:08 02/25/19 19:41 Flexeril PO 10 mg QPM PRN Administration Muscle Spasm Escitalopram Oxalate 10 mg 02/25/19 09:00 02/26/19 08:45 Lexapro PO 10 mg DAILY DANNY Administration Ceftriaxone Sodium 1 gm/ 100 mls @ 200 mls/hr 02/24/19 21:00 02/25/19 19:40 Sodium Chloride IVPB 100 mls Q24HR DANNY Administration Sodium Chloride 1,000 mls @ 70 mls/hr 02/25/19 16:15 02/26/19 06:18 1/2 Normal Saline IV 1,000 mls .[id number] DANNY Administration Methylprednisolone Sodium Succinate 20 mg 02/26/19 09:00 02/26/19 08:48 Solu-Medrol IVP 20 mg QAM DANNY Administration Ondansetron HCl 4 mg 02/25/19 03:23 02/26/19 09:43 Zofran IVP 4 mg Q6H PRN Administration Nausea/Vomiting Pantoprazole Sodium 40 mg 02/25/19 21:00 02/26/19 08:45 Protonix IVP 40 mg Q12HR DANNY Administration Sodium Chloride 10 ml 02/25/19 03:56 02/25/19 19:38 Normal Saline Pf FS 10 ml PRN PRN Administration RECONSTITUTION Tramadol HCl 50 mg 02/24/19 13:08 02/25/19 17:42 Ultram PO 50 mg Q6H PRN Administration Pain Zolpidem Tartrate 5 mg 02/24/19 13:08 02/25/19 19:41 Ambien PO 5 mg HS PRN Administration Insomnia - Exam General Appearance: NAD, awake alert ENT: moist mucosa Heart: RRR, no murmur, no gallops, no rubs Respiratory: CTAB, no wheezes, no rales, no ronchi Gastrointestinal: soft, non-distended, normal bowel sounds Gastrointestinal - other findings: mild TTP ESTEBAN Psychiatric: normal affect, normal behavior, A&O x 3 Hosp A/P (1) GI bleed Code(s): K92.2 - GASTROINTESTINAL HEMORRHAGE, UNSPECIFIED Status: Acute (2) Hypotension Status: Resolved (3) Acute encephalopathy Code(s): G93.40 - ENCEPHALOPATHY, UNSPECIFIED Status: Acute (4) Leukocytosis Code(s): D72.829 - ELEVATED WHITE BLOOD CELL COUNT, UNSPECIFIED Status: Acute (5) Giant cell arteritis Code(s): M31.6 - OTHER GIANT CELL ARTERITIS Status: Ruled-out (6) Acute respiratory failure Code(s): J96.00 - ACUTE RESPIRATORY FAILURE, UNSP W HYPOXIA OR HYPERCAPNIA Status: Acute (7) HTN (hypertension) Code(s): I10 - ESSENTIAL (PRIMARY) HYPERTENSION Status: Chronic Qualifiers: Hypertension type: essential hypertension Qualified Code(s): I10 - Essential (primary) hypertension (8) Anemia due to blood loss, acute Code(s): D62 - ACUTE POSTHEMORRHAGIC ANEMIA Status: Acute - Plan Biopsy reportedly negative for Giant Cell Arteritis Patient with large bleeding ulcer treated endoscopically, H/H decently stable since, repeat EGD today Steroids, IV fluids, Rocephin, can back off on steroids as the hypotension was likely not adrenal in origin Pulmonology consult- extubated and doing fine respiratory hollis since. Blood cultures negative
[2019-02-26] MEDS ORDERED: cefTRIAXone\\ROCEPHIN 1 GM in Sodium Chloride 0.9% 100 ML IVPB SCH (12:30)
--- NOTE | 2019-02-26 16:11 | OP ---
DATE OF PROCEDURE: 02/26/2019 PREPROCEDURE DIAGNOSIS: Gastrointestinal hemorrhage from gastric ulcer. Second look to make sure control of bleeding has been achieved. POSTPROCEDURE DIAGNOSES: Large ulcer in the lesser curve with a black eschar in the base. Visible vessel seems ablated. No pulsatile motion or active bleeding. RECOMMENDATIONS: 1. Continue IV PPI q.12 hours. 2. Liquid diet. ANESTHESIA: TIVA. PROCEDURE IN DETAIL: After the patient was informed of the risks, benefits, possible complications, indications of repeat endoscopy, informed consent was obtained. The patient was brought to endoscopy suite, where she was sedated in gradual fashion. Once she was comfortable, a bite was placed inside the orifice. The endoscope was advanced to the esophagus, stomach, and 2nd and 3rd portions of duodenum and slowly removed. The esophagus was normal. The duodenum was normal. In the stomach, the aforementioned large ulcer was noted in the lesser curve just proximal to the incisura and black eschar at the base. There was a vessel seen, but it looked ablated. There was no pulsatile motion. There was no clot. No active bleeding. No further intervention was performed. We will continue medical treatment at this time. She should remain hospitalized with IV PPI for about 48 hours before switching to p.o. After full evaluation was obtained, the scope was removed. The patient tolerated the procedure well. There were no complications. Job ID: [id number]
[2019-02-26] MEDS: Acetaminophen 325 MG TAB PO PRN (19:08)
--- NOTE | 2019-02-26 20:32 | PRG ---
DATE OF SERVICE: 02/26/2019 SUBJECTIVE: Darrel Beard is much more talkative today. She is in no distress. Fortunately, she was not found to have continued bleeding today when she underwent endoscopy. OBJECTIVE: VITAL SIGNS: She is afebrile. Heart rate is in the 60s, blood pressure in the 120s to 140s, respiratory rates in the teens to low 20s. LUNGS: Clear. HEART: Regular rhythm. ABDOMEN: Soft. LABORATORY DATA: White count 18.0, hemoglobin 9.4, platelets 221. Electrolytes are normal. BUN is 35, most likely because of blood in her gut. IMPRESSION AND PLAN: 1. Status post encephalopathy leading to intubation. The etiology of this is unclear. I did order an EEG with reports pending, usually the senior controls technician will call me if there is any evidence of seizure disorder. 2. Gastrointestinal bleed with gastric ulcer with visible bleeding vessel, resolved for now. 3. Subacute right-sided headache with right-sided eye pain of unclear etiology, status post temporal artery biopsy was negative. Overall, she appears to be clinically stable at this point in time. I will see her in followup in the morning when I make rounds. I met with the and answered all of his questions. Job ID: [id number]
[2019-02-26] MEDS: cefTRIAXone\\ROCEPHIN 1 GM in Sodium Chloride 0.9% 100 ML IVPB SCH (20:47)
[2019-02-26] MEDS: Cyclobenzaprine 10 MG TAB PO PRN (23:42)
[2019-02-26] MEDS: Zolpidem Tartrate 5 MG TAB PO PRN (23:42)
[2019-02-27] MEDS: Ondansetron PF 4 MG/2 ML Vial IVP PRN (05:05)
[2019-02-27] MEDS: traMADol HCl 50 MG TAB PO PRN (05:28)
[2019-02-27 05:53] LABS: #Lymphocytes 4.9 thou/uL (1.20-3.40); #Monocytes 0.8 thou/uL (0.11-0.59); #Neutrophils 8.8 thou/uL (1.40-6.50); %Basophils 0.2 % (0.0-1.0); %Eosinophils 0.3 % (0.0-10.0); %Lymphocytes 33.8 % (21.0-51.0); %Monocytes 5.7 % (0.0-10.0); %Neutrophils 60.1 % (42.0-75.0); Hemoglobin 9.1 g/dL (12.0-16.0); Mean Corpuscular HGB CONC 35.1 g/dL (32.0-36.0); Mean Corpuscular Hemoglobin 33.2 pg (27.0-31.0); Mean Corpuscular Volume 94.5 fL (78.0-98.0); Mean Platelet Volume 7.2 fL (7.4-10.4); Platelet Count 219 thou/uL (130-400); RBC Distribution Width 16.5 % (11.5-14.5); Red Blood Cell (RBC) Count 2.74 mill/uL (4.20-5.40); White Blood Cell (WBC) Count 14.6 thou/uL (4.8-10.8)
[2019-02-27 05:56] LABS: Anion Gap 9 mmol/L (10-20); BUN (Urea Nitrogen) 21 mg/dL (9.8-20.1); Calc. Creatinine Clearance 131 mL/min (70-130); Calcium 8.5 mg/dL (7.8-10.44); Carbon Dioxide 27 mmol/L (23-31); Chloride 107 mmol/L (98-107); Estimated GFR-MDRD 86; Glucose 80 mg/dL (80-115); Potassium 4.3 mmol/L (3.5-5.1); Sodium 139 mmol/L (136-145)
[2019-02-27] MEDS ORDERED: predniSONE 20 MG TAB PO SCH (08:00)
[2019-02-27] MEDS: Pantoprazole 40 MG VIAL IVP SCH ×2 (09:30→20:19)
[2019-02-27] MEDS: Calcium Carbonate + Vit D 1 TAB PO SCH (09:30)
[2019-02-27] MEDS: Escitalopram Oxalate 10 mg Tablet PO SCH (09:30)
[2019-02-27] MEDS: Atorvastatin Calcium 40 MG TAB PO SCH (09:30)
--- NOTE | 2019-02-27 09:53 | PRG ---
DATE OF SERVICE: 02/27/2019 SUBJECTIVE: Ms. Beard had a good night. She is very talkative. She ambulated in the [place] without assistance yesterday. OBJECTIVE: VITAL SIGNS: She is afebrile, heart rate is 54, respiratory rate 20, oximetry is 99 on room air, and blood pressure 126/78. LUNGS: Clear. HEART: Regular rhythm. ABDOMEN: Soft. LABORATORY DATA: Hemoglobin is stable at 9.1. Electrolytes are stable. BUN and creatinine are normal. IMPRESSION: 1. Status post encephalopathy, leading to intubation, resolved. The etiology is still unclear. 2. Status post temporal artery biopsy. 3. Chronic steroid use. 4. Large bleeding gastric ulcer, probably at least in part related to chronic steroid use combined with Advil. She has undergone endoscopy twice. Her ulcer does clinically not appear to be bleeding and was not bleeding on the second endoscopy. She probably will need to remain in the hospital for a few more days for blood count monitoring. We will be available for emergencies over the weekend. Otherwise, I will see her again on Saturday if she is still in the hospital. I met with her and answered all of his questions. Job ID: [id number]
[2019-02-27] MEDS: predniSONE 20 MG TAB PO SCH (10:54)
[2019-02-27] MEDS: Sodium Chloride 0.45% 1,000 ML IV SCH (11:09)
--- NOTE | 2019-02-27 13:49 | PDOC.HOSPP ---
- Subjective Encounter Date: 02/27/19 (f/u GI bleed) Encounter Time: 13:47 Subjective: Pt without complaints, notes some discomfort in stomach and esophagus. Denies any n/v/pain. Denies cp/sob - Objective Vital Signs & Weight: Vital Signs (12 hours) Temp Pulse Resp BP Pulse Ox 02/27/19 08:00 99 02/27/19 07:39 98.4 F 54 L 20 126/78 99 02/27/19 04:38 98.4 F 62 15 141/82 H 97 Weight Admit Weight 257 lb Weight 256 lb 13.416 oz Most Recent Monitor Data Heart Rate from ECG 68 NIBP 124/65 NIBP BP-Mean 84 Respiration from ECG 0 SpO2 99 I&O: 02/26/19 02/27/19 02/28/19 06:59 06:59 06:59 Intake Total 1466 1410 Output Total 2004 7124 700 Balance -539 395 -700 Result Diagrams: 02/27/19 05:12 02/27/19 05:12 Hospitalist ROS - Medication Medications: Active Medications Generic Name Dose Route Start Last Admin Trade Name Freq PRN Reason Stop Dose Admin Acetaminophen 325 mg 02/24/19 13:08 02/26/19 19:08 Tylenol PO 325 mg Q4H PRN Administration Headache Atorvastatin Calcium 40 mg 02/25/19 09:00 02/27/19 09:30 Lipitor PO 40 mg DAILY DANNY Administration Calcium/Vitamin D 1 tab 02/25/19 09:00 02/27/19 09:30 Caltrate 600 + Vit D PO 1 tab DAILY DANNY Administration Cyclobenzaprine HCl 10 mg 02/24/19 13:08 02/26/19 23:42 Flexeril PO 10 mg QPM PRN Administration Muscle Spasm Escitalopram Oxalate 10 mg 02/25/19 09:00 02/27/19 09:30 Lexapro PO 10 mg DAILY DANNY Administration Ceftriaxone Sodium 1 gm/ 100 mls @ 200 mls/hr 02/24/19 21:00 02/26/19 20:47 Sodium Chloride IVPB 100 mls Q24HR DANNY Administration Sodium Chloride 1,000 mls @ 70 mls/hr 02/25/19 16:15 02/26/19 16:57 1/2 Normal Saline IV 1,000 mls .[id number] DANNY Administration Ondansetron HCl 4 mg 02/25/19 03:23 02/27/19 05:05 Zofran IVP 4 mg Q6H PRN Administration Nausea/Vomiting Pantoprazole Sodium 40 mg 02/25/19 21:00 02/27/19 09:30 Protonix IVP 40 mg Q12HR DANNY Administration Prednisone 30 mg 02/27/19 08:00 02/27/19 10:54 Prednisone PO 30 mg QAM-WM DANNY Administration Sodium Chloride 10 ml 02/25/19 03:56 02/25/19 19:38 Normal Saline Pf FS 10 ml PRN PRN Administration RECONSTITUTION Tramadol HCl 50 mg 02/24/19 13:08 02/27/19 05:28 Ultram PO 50 mg Q6H PRN Administration Pain Zolpidem Tartrate 5 mg 02/24/19 13:08 02/26/19 23:42 Ambien PO 5 mg HS PRN Administration Insomnia - Exam General Appearance: NAD Heart: RRR, no murmur, no gallops Respiratory: CTAB, no wheezes, no rales, no ronchi Gastrointestinal: soft, non-tender, non-distended, normal bowel sounds Extremities: no cyanosis, no clubbing, no edema Psychiatric: normal affect Hosp A/P (1) GI bleed Code(s): K92.2 - GASTROINTESTINAL HEMORRHAGE, UNSPECIFIED Status: Acute (2) Anemia due to blood loss, acute Code(s): D62 - ACUTE POSTHEMORRHAGIC ANEMIA Status: Acute (3) Acute encephalopathy Code(s): G93.40 - ENCEPHALOPATHY, UNSPECIFIED Status: Acute (4) Acute respiratory failure Code(s): J96.00 - ACUTE RESPIRATORY FAILURE, UNSP W HYPOXIA OR HYPERCAPNIA Status: Resolved (5) HTN (hypertension) Code(s): I10 - ESSENTIAL (PRIMARY) HYPERTENSION Status: Chronic Qualifiers: Hypertension type: essential hypertension Qualified Code(s): I10 - Essential (primary) hypertension (6) Hypotension Status: Resolved - Plan Overall improved without active bleeding on Endoscopy yesterday - appreciate GI consult - IV PPI x 48 hours starting last night - liquid diet - d/c IVF as pt adequately taking PO Anemia stable - continue to monitor daily On prednisone - down to 30 mg daily - continue to wean off. Pt has been on for the past month Blood cx negative - no signs of infection, will d/c Rocephin dvt prophy - scd's due to GI bleed gi prophy - IV PPI as tx for ulcer code status full reviewed 2 changes with patient/, no questions or further needs at end of eval.
[2019-02-27] MEDS: Cyclobenzaprine 10 MG TAB PO PRN (21:49)
[2019-02-28] MEDS: traMADol HCl 50 MG TAB PO PRN (01:55)
[2019-02-28 06:38] LABS: #Basophils 0.2 thou/uL (0.0-0.2); #Lymphocytes 3.9 thou/uL (1.20-3.40); #Monocytes 0.8 thou/uL (0.11-0.59); #Neutrophils 7.8 thou/uL (1.40-6.50); %Basophils 1.3 % (0.0-1.0); %Eosinophils 0.3 % (0.0-10.0); %Lymphocytes 30.3 % (21.0-51.0); %Monocytes 6.5 % (0.0-10.0); %Neutrophils 61.6 % (42.0-75.0); Hemoglobin 8.6 g/dL (12.0-16.0); Mean Corpuscular HGB CONC 32.8 g/dL (32.0-36.0); Mean Corpuscular Volume 94.6 fL (78.0-98.0); Mean Platelet Volume 7.3 fL (7.4-10.4); Platelet Count 220 thou/uL (130-400); RBC Distribution Width 16.2 % (11.5-14.5); Red Blood Cell (RBC) Count 2.78 mill/uL (4.20-5.40); White Blood Cell (WBC) Count 12.7 thou/uL (4.8-10.8)
[2019-02-28 06:56] LABS: Anion Gap 10 mmol/L (10-20); BUN (Urea Nitrogen) 16 mg/dL (9.8-20.1); Calc. Creatinine Clearance 129 mL/min (70-130); Calcium 8.9 mg/dL (7.8-10.44); Carbon Dioxide 30 mmol/L (23-31); Chloride 105 mmol/L (98-107); Estimated GFR-MDRD 85; Glucose 80 mg/dL (80-115); Potassium 3.8 mmol/L (3.5-5.1); Sodium 141 mmol/L (136-145)
[2019-02-28] MEDS: Pantoprazole 40 MG VIAL IVP SCH ×2 (09:01→20:13)
[2019-02-28] MEDS: Escitalopram Oxalate 10 mg Tablet PO SCH (09:03)
[2019-02-28] MEDS: Calcium Carbonate + Vit D 1 TAB PO SCH (09:03)
[2019-02-28] MEDS: predniSONE 20 MG TAB PO SCH (09:03)
[2019-02-28] MEDS: Atorvastatin Calcium 40 MG TAB PO SCH (09:03)
[2019-02-28] MEDS: Lubiprostone 24 MCG CAP PO PRN (10:17)
--- NOTE | 2019-02-28 12:16 | PDOC.HOSPP ---
- Subjective Encounter Date: 02/28/19 (f/u GI bleed) Encounter Time: 12:14 Subjective: Pt c/o feeling weaker today, some more pressure on her left side, states she is burping but not passing flatus and no bm since prior to admission. also having some nausea. - Objective Vital Signs & Weight: Vital Signs (12 hours) Temp Pulse Resp BP Pulse Ox 02/28/19 07:51 98.2 F 67 18 130/86 98 02/28/19 03:57 97 Weight Admit Weight 257 lb Weight 256 lb 13.416 oz Most Recent Monitor Data Heart Rate from ECG 68 NIBP 124/65 NIBP BP-Mean 84 Respiration from ECG 0 SpO2 99 I&O: 02/27/19 02/28/19 03/01/19 06:59 06:59 06:59 Intake Total 1410 720 Output Total 1015 700 Balance 395 20 Result Diagrams: 02/28/19 12:16 02/28/19 05:50 Hospitalist ROS - Medication Medications: Active Medications Generic Name Dose Route Start Last Admin Trade Name Freq PRN Reason Stop Dose Admin Acetaminophen 325 mg 02/24/19 13:08 02/26/19 19:08 Tylenol PO 325 mg Q4H PRN Administration Headache Atorvastatin Calcium 40 mg 02/25/19 09:00 02/28/19 09:03 Lipitor PO 40 mg DAILY DANNY Administration Calcium/Vitamin D 1 tab 02/25/19 09:00 02/28/19 09:03 Caltrate 600 + Vit D PO 1 tab DAILY DANNY Administration Cyclobenzaprine HCl 10 mg 02/24/19 13:08 02/27/19 21:49 Flexeril PO 10 mg QPM PRN Administration Muscle Spasm Escitalopram Oxalate 10 mg 02/25/19 09:00 02/28/19 09:03 Lexapro PO 10 mg DAILY DANNY Administration Lubiprostone 24 mcg 02/24/19 13:08 02/28/19 10:17 Amitiza PO 24 mcg BID PRN Administration Constipation Ondansetron HCl 4 mg 02/25/19 03:23 02/27/19 05:05 Zofran IVP 4 mg Q6H PRN Administration Nausea/Vomiting Pantoprazole Sodium 40 mg 02/25/19 21:00 02/28/19 09:01 Protonix IVP 40 mg Q12HR DANNY Administration Prednisone 30 mg 02/27/19 08:00 02/28/19 09:03 Prednisone PO 30 mg QAM-WM DANNY Administration Sodium Chloride 10 ml 02/25/19 03:56 02/25/19 19:38 Normal Saline Pf FS 10 ml PRN PRN Administration RECONSTITUTION Tramadol HCl 50 mg 02/24/19 13:08 02/28/19 01:55 Ultram PO 50 mg Q6H PRN Administration Pain Zolpidem Tartrate 5 mg 02/24/19 13:08 02/26/19 23:42 Ambien PO 5 mg HS PRN Administration Insomnia - Exam General Appearance: NAD Heart: RRR, no murmur Respiratory: CTAB, no wheezes, no rales, no ronchi Gastrointestinal: soft, non-distended Gastrointestinal - other findings: ttp along left side without palp abnormality , present but hypoactive bowel Extremities: no cyanosis, no clubbing, no edema Psychiatric: normal affect Hosp A/P (1) GI bleed Code(s): K92.2 - GASTROINTESTINAL HEMORRHAGE, UNSPECIFIED Status: Acute (2) Anemia due to blood loss, acute Code(s): D62 - ACUTE POSTHEMORRHAGIC ANEMIA Status: Acute (3) Acute encephalopathy Code(s): G93.40 - ENCEPHALOPATHY, UNSPECIFIED Status: Acute (4) Acute respiratory failure Code(s): J96.00 - ACUTE RESPIRATORY FAILURE, UNSP W HYPOXIA OR HYPERCAPNIA Status: Resolved (5) HTN (hypertension) Code(s): I10 - ESSENTIAL (PRIMARY) HYPERTENSION Status: Chronic Qualifiers: Hypertension type: essential hypertension Qualified Code(s): I10 - Essential (primary) hypertension (6) Hypotension Status: Resolved - Plan Drop in hemoglobin today with some mild abd sx - STAT recheck h/h - pt is on IV protonix BID On prednisone - down to 30 mg yesterday - continue to wean off. Pt has been on for the past month Bowel sounds present but hypoactive - continue bowel meds prn Blood cx negative - no signs of infection, Rocephin d/c yesterday dvt prophy - scd's due to GI bleed gi prophy - IV PPI as tx for ulcer code status full Addendum - repeat hemoglobin is 9.4. No change to the plan. Will retime the morning labs to 9:00 for tomorrow.
[2019-02-28 12:39] LABS: Hemoglobin 9.4 g/dL (12.0-16.0)
--- NOTE | 2019-02-28 15:35 | PRG ---
DATE OF SERVICE: 02/28/2019 Ms. Beard, Christine was asked to re-evaluate as her hemoglobin had dropped slightly this morning from 9.1 yesterday to 8.6, it was 9.4 on the 9th, 10 on the 8th. She has had no melena. She feels well. She is trying to have a bowel movement, just took a stool laxative. OBJECTIVE: VITAL SIGNS: Temperature is 98, blood pressure is 130/86, and pulse is 67. GENERAL: She is sitting up in bed. ABDOMEN: Soft and nontender. LABORATORY DATA: Hemoglobin at 12 was 9.4. ASSESSMENT: Stable hemoglobin, status post upper gastrointestinal bleed with a very large gastric ulcer. RECOMMENDATIONS: If hemoglobin remains stable tomorrow, advance to soft diet and change to Protonix 40 mg p.o. b.i.d. We will follow along with you. Job ID: [id number]
[2019-02-28] MEDS: Zolpidem Tartrate 5 MG TAB PO PRN (20:12)
[2019-02-28] MEDS: Cyclobenzaprine 10 MG TAB PO PRN (20:12)
[2019-03-01] MEDS: Lubiprostone 24 MCG CAP PO PRN (06:28)
[2019-03-01] MEDS: predniSONE 20 MG TAB PO SCH (08:19)
[2019-03-01] MEDS: Calcium Carbonate + Vit D 1 TAB PO SCH (08:19)
[2019-03-01] MEDS: Escitalopram Oxalate 10 mg Tablet PO SCH (08:19)
[2019-03-01] MEDS: Atorvastatin Calcium 40 MG TAB PO SCH (08:19)
[2019-03-01] MEDS: Pantoprazole 40 MG VIAL IVP SCH (08:21)
[2019-03-01 09:51] LABS: #Basophils 0.1 thou/uL (0.0-0.2); #Eosinphils 0.1 thou/uL (0.0-0.7); #Lymphocytes 3.9 thou/uL (1.20-3.40); #Monocytes 0.7 thou/uL (0.11-0.59); #Neutrophils 9.1 thou/uL (1.40-6.50); %Basophils 0.9 % (0.0-1.0); %Eosinophils 0.5 % (0.0-10.0); %Lymphocytes 28.2 % (21.0-51.0); %Monocytes 4.9 % (0.0-10.0); %Neutrophils 65.5 % (42.0-75.0); Hemoglobin 9.2 g/dL (12.0-16.0); Mean Corpuscular HGB CONC 32.4 g/dL (32.0-36.0); Mean Corpuscular Hemoglobin 30.9 pg (27.0-31.0); Mean Corpuscular Volume 95.4 fL (78.0-98.0); Mean Platelet Volume 7.4 fL (7.4-10.4); Platelet Count 264 thou/uL (130-400); RBC Distribution Width 16.2 % (11.5-14.5); Red Blood Cell (RBC) Count 2.97 mill/uL (4.20-5.40); White Blood Cell (WBC) Count 13.8 thou/uL (4.8-10.8)
[2019-03-01 10:11] LABS: Anion Gap 12 mmol/L (10-20); BUN (Urea Nitrogen) 13 mg/dL (9.8-20.1); Calc. Creatinine Clearance 113 mL/min (70-130); Calcium 9.1 mg/dL (7.8-10.44); Carbon Dioxide 26 mmol/L (23-31); Chloride 103 mmol/L (98-107); Estimated GFR-MDRD 73; Glucose 114 mg/dL (80-115); Sodium 138 mmol/L (136-145)
[2019-03-01 10:17] LABS: Potassium 2.9 mmol/L (3.5-5.1)
--- NOTE | 2019-03-01 12:02 | PDOC.HOSPP ---
- Subjective Encounter Date: 03/01/19 (f/u GI bleed) Encounter Time: 11:59 Subjective: Pt reports she is feeling better, had a bm - states dark/bloody appearing. First BM this admission. She reports abd pain resolved, denies n/v/cp/sob. She reports her strength is improved. - Objective Vital Signs & Weight: Vital Signs (12 hours) Temp Pulse Resp BP Pulse Ox 03/01/19 08:00 98 03/01/19 07:49 98.0 F 80 18 141/71 H 98 Weight Admit Weight 257 lb Weight 256 lb 13.416 oz Most Recent Monitor Data Heart Rate from ECG 68 NIBP 124/65 NIBP BP-Mean 84 Respiration from ECG 0 SpO2 99 I&O: 02/28/19 03/01/19 03/02/19 06:59 06:59 06:59 Intake Total 720 Output Total 700 Balance 20 Result Diagrams: 03/01/19 09:17 03/01/19 09:17 Hospitalist ROS - Medication Medications: Active Medications Generic Name Dose Route Start Last Admin Trade Name Freq PRN Reason Stop Dose Admin Acetaminophen 325 mg 02/24/19 13:08 02/26/19 19:08 Tylenol PO 325 mg Q4H PRN Administration Headache Atorvastatin Calcium 40 mg 02/25/19 09:00 03/01/19 08:19 Lipitor PO 40 mg DAILY DANNY Administration Calcium/Vitamin D 1 tab 02/25/19 09:00 03/01/19 08:19 Caltrate 600 + Vit D PO 1 tab DAILY DANNY Administration Cyclobenzaprine HCl 10 mg 02/24/19 13:08 02/28/19 20:12 Flexeril PO 10 mg QPM PRN Administration Muscle Spasm Escitalopram Oxalate 10 mg 02/25/19 09:00 03/01/19 08:19 Lexapro PO 10 mg DAILY DANNY Administration Lubiprostone 24 mcg 02/24/19 13:08 03/01/19 06:28 Amitiza PO 24 mcg BID PRN Administration Constipation Ondansetron HCl 4 mg 02/25/19 03:23 02/27/19 05:05 Zofran IVP 4 mg Q6H PRN Administration Nausea/Vomiting Pantoprazole Sodium 40 mg 02/25/19 21:00 03/01/19 08:21 Protonix IVP 40 mg Q12HR DANNY Administration Sodium Chloride 10 ml 02/25/19 03:56 02/25/19 19:38 Normal Saline Pf FS 10 ml PRN PRN Administration RECONSTITUTION Tramadol HCl 50 mg 02/24/19 13:08 02/28/19 01:55 Ultram PO 50 mg Q6H PRN Administration Pain Zolpidem Tartrate 5 mg 02/24/19 13:08 02/28/19 20:12 Ambien PO 5 mg HS PRN Administration Insomnia - Exam General Appearance: NAD Heart: RRR, no murmur Respiratory: CTAB, no wheezes, no rales, no ronchi Gastrointestinal: soft, non-tender, non-distended, normal bowel sounds Extremities: no cyanosis, no clubbing, no edema Psychiatric: normal affect Hosp A/P (1) GI bleed Code(s): K92.2 - GASTROINTESTINAL HEMORRHAGE, UNSPECIFIED Status: Acute (2) Anemia due to blood loss, acute Code(s): D62 - ACUTE POSTHEMORRHAGIC ANEMIA Status: Acute (3) Acute encephalopathy Code(s): G93.40 - ENCEPHALOPATHY, UNSPECIFIED Status: Acute (4) Acute respiratory failure Code(s): J96.00 - ACUTE RESPIRATORY FAILURE, UNSP W HYPOXIA OR HYPERCAPNIA Status: Resolved (5) HTN (hypertension) Code(s): I10 - ESSENTIAL (PRIMARY) HYPERTENSION Status: Chronic Qualifiers: Hypertension type: essential hypertension Qualified Code(s): I10 - Essential (primary) hypertension (6) Hypotension Status: Resolved (7) Hypokalemia Code(s): E87.6 - HYPOKALEMIA Status: Acute - Plan GI bleed - appreciate GI consult - on BID PPI IV - transition to oral per Dr. Haider On prednisone over past month - continue to wean. Was on 30 mg daily x 3 days, change to 20 mg daily starting tomorrow and plan for outpatient taper and f/up with the original prescriber Hypokalemia today - uncertain etiology. Will replace orally and recheck this afternoon. Start with 20 mEq - increase if needed. Mag level checked and normal. monitor bm's and continue bowel meds dvt prophy - scd's due to GI bleed gi prophy - IV PPI as tx for ulcer code status full
--- NOTE | 2019-03-01 15:33 | PRG ---
DATE OF SERVICE: 03/01/2019 SUBJECTIVE: Ms. Beard is feeling well. She has had no bleeding. OBJECTIVE: VITAL SIGNS: Temperature 98, blood pressure 141/51. ABDOMEN: Soft, nontender. LABORATORY DATA: Hemoglobin is 9.2. ASSESSMENT: GI bleed from gastric ulcer, stable. RECOMMENDATIONS: Change Protonix to p.o. We will defer to Primary Service, they want to release her. When she does go home possibly tomorrow or the next day, she will need to follow up with Dr. Guero Alva in the outpatient setting. Remain on b.i.d. PPIs for 8 weeks and avoid all NSAIDs. Hopefully taper off her steroids. Dr. Alva will return tomorrow. Job ID: [id number]
[2019-03-01 16:41] LABS: Anion Gap 11 mmol/L (10-20); BUN (Urea Nitrogen) 13 mg/dL (9.8-20.1); Calc. Creatinine Clearance 122 mL/min (70-130); Calcium 9.2 mg/dL (7.8-10.44); Carbon Dioxide 29 mmol/L (23-31); Chloride 104 mmol/L (98-107); Estimated GFR-MDRD 80; Glucose 103 mg/dL (80-115); Potassium 4.1 mmol/L (3.5-5.1); Sodium 140 mmol/L (136-145)
[2019-03-01] MEDS: Cyclobenzaprine 10 MG TAB PO PRN (22:14)
[2019-03-02 07:40] VITALS: BP 133/88; TEMP 98.6
[2019-03-02] MEDS: Calcium Carbonate + Vit D 1 TAB PO SCH (08:00)
[2019-03-02] MEDS: Escitalopram Oxalate 10 mg Tablet PO SCH (08:00)
[2019-03-02] MEDS ORDERED: predniSONE 20 MG TAB PO SCH (08:00)
[2019-03-02] MEDS: Atorvastatin Calcium 40 MG TAB PO SCH (08:00)
[2019-03-02 08:07] LABS: #Basophils 0.2 thou/uL (0.0-0.2); #Lymphocytes 4.6 thou/uL (1.20-3.40); #Monocytes 0.7 thou/uL (0.11-0.59); #Neutrophils 7.8 thou/uL (1.40-6.50); %Basophils 1.7 % (0.0-1.0); %Eosinophils 0.4 % (0.0-10.0); %Lymphocytes 34.4 % (21.0-51.0); %Monocytes 5.4 % (0.0-10.0); %Neutrophils 58.2 % (42.0-75.0); Hemoglobin 8.6 g/dL (12.0-16.0); Mean Corpuscular Hemoglobin 31.5 pg (27.0-31.0); Mean Corpuscular Volume 95.5 fL (78.0-98.0); Mean Platelet Volume 6.8 fL (7.4-10.4); Platelet Count 261 thou/uL (130-400); RBC Distribution Width 16.4 % (11.5-14.5); Red Blood Cell (RBC) Count 2.71 mill/uL (4.20-5.40); White Blood Cell (WBC) Count 13.4 thou/uL (4.8-10.8)
[2019-03-02 08:24] LABS: Anion Gap 10 mmol/L (10-20); BUN (Urea Nitrogen) 11 mg/dL (9.8-20.1); Calc. Creatinine Clearance 118 mL/min (70-130); Calcium 9.1 mg/dL (7.8-10.44); Carbon Dioxide 28 mmol/L (23-31); Chloride 105 mmol/L (98-107); Estimated GFR-MDRD 77; Glucose 89 mg/dL (80-115); Potassium 3.3 mmol/L (3.5-5.1); Sodium 140 mmol/L (136-145)
--- NOTE | 2019-03-02 10:38 | PDOC.HOSPP ---
- Subjective Encounter Date: 03/02/19 Encounter Time: 12:00 Subjective: Patient feeling much better. Still burping a lot but no vomiting. ESTEBAN pain markedly decreased. Able to ambulate but feels a little tired sometimes and more stable if her is there to grab onto intermittently. He is going to take off work to take care of her for the next few weeks while she recovers. - Objective Vital Signs & Weight: Vital Signs (12 hours) Temp Pulse Resp BP Pulse Ox 03/02/19 07:40 98 03/02/19 07:39 98.6 F 71 20 133/88 98 Weight Admit Weight 257 lb Weight 256 lb 13.416 oz Most Recent Monitor Data Heart Rate from ECG 68 NIBP 124/65 NIBP BP-Mean 84 Respiration from ECG 0 SpO2 99 I&O: 03/01/19 03/02/19 03/03/19 06:59 06:59 06:59 Intake Total 480 Balance 480 Result Diagrams: 03/02/19 07:57 03/02/19 07:57 Hospitalist ROS - Review of Systems Constitutional: denies: fever, chills Respiratory: denies: cough, shortness of breath Cardiovascular: denies: chest pain, palpitations, orthopnea Gastrointestinal: reports: abdominal pain. denies: nausea, vomiting, diarrhea, constipation Genitourinary: denies: dysuria, hematuria - Medication Medications: Active Medications Generic Name Dose Route Start Last Admin Trade Name Freq PRN Reason Stop Dose Admin Acetaminophen 325 mg 02/24/19 13:08 02/26/19 19:08 Tylenol PO 325 mg Q4H PRN Administration Headache Atorvastatin Calcium 40 mg 02/25/19 09:00 03/02/19 08:00 Lipitor PO 40 mg DAILY DANNY Administration Calcium/Vitamin D 1 tab 02/25/19 09:00 03/02/19 08:00 Caltrate 600 + Vit D PO 1 tab DAILY DANNY Administration Cyclobenzaprine HCl 10 mg 02/24/19 13:08 03/01/19 22:14 Flexeril PO 10 mg QPM PRN Administration Muscle Spasm Escitalopram Oxalate 10 mg 02/25/19 09:00 03/02/19 08:00 Lexapro PO 10 mg DAILY DANNY Administration Lubiprostone 24 mcg 02/24/19 13:08 03/01/19 06:28 Amitiza PO 24 mcg BID PRN Administration Constipation Ondansetron HCl 4 mg 02/25/19 03:23 02/27/19 05:05 Zofran IVP 4 mg Q6H PRN Administration Nausea/Vomiting Pantoprazole Sodium 40 mg 03/02/19 09:00 03/02/19 08:00 Protonix PO 40 mg DAILY DANNY Administration Prednisone 20 mg 03/02/19 08:00 03/02/19 08:00 Prednisone PO 20 mg QAM-WM DANNY Administration Sodium Chloride 10 ml 02/25/19 03:56 02/25/19 19:38 Normal Saline Pf FS 10 ml PRN PRN Administration RECONSTITUTION Tramadol HCl 50 mg 02/24/19 13:08 02/28/19 01:55 Ultram PO 50 mg Q6H PRN Administration Pain Zolpidem Tartrate 5 mg 02/24/19 13:08 02/28/19 20:12 Ambien PO 5 mg HS PRN Administration Insomnia - Exam General Appearance: NAD, awake alert ENT: moist mucosa Heart: RRR, no murmur, no gallops, no rubs Respiratory: CTAB, no wheezes, no rales, no ronchi Gastrointestinal: soft, non-distended, normal bowel sounds, no palpable masses, no guarding, no rigidity Gastrointestinal - other findings: minimal TTP ESTEBAN Extremities: no edema Psychiatric: normal affect, normal behavior, A&O x 3 Hosp A/P (1) GI bleed Code(s): K92.2 - GASTROINTESTINAL HEMORRHAGE, UNSPECIFIED Status: Resolved (2) Hypotension Status: Resolved (3) Acute encephalopathy Code(s): G93.40 - ENCEPHALOPATHY, UNSPECIFIED Status: Resolved (4) Leukocytosis Code(s): D72.829 - ELEVATED WHITE BLOOD CELL COUNT, UNSPECIFIED Status: Acute (5) Giant cell arteritis Code(s): M31.6 - OTHER GIANT CELL ARTERITIS Status: Ruled-out (6) Acute respiratory failure Code(s): J96.00 - ACUTE RESPIRATORY FAILURE, UNSP W HYPOXIA OR HYPERCAPNIA Status: Resolved (7) HTN (hypertension) Code(s): I10 - ESSENTIAL (PRIMARY) HYPERTENSION Status: Chronic Qualifiers: Hypertension type: essential hypertension Qualified Code(s): I10 - Essential (primary) hypertension (8) Anemia due to blood loss, acute Code(s): D62 - ACUTE POSTHEMORRHAGIC ANEMIA Status: Acute Plan: stable since 02/25/2019 after transfusions - Plan out of bed/ambulate Biopsy reportedly negative for Giant Cell Arteritis Patient with large bleeding ulcer treated endoscopically, H/H stable since Steroids being titrated down Off antibiotics Blood cultures negative Can d/c home today with assisting at home
[2019-03-02] MEDS ORDERED: Potassium Chloride 20 MEQ TAB PO SCH (10:45)
--- NOTE | 2019-03-02 11:48 | PRG ---
DATE OF SERVICE: 03/02/2019 SUBJECTIVE: Ms. Beard is feeling well. No significant abdominal pain. No nausea. She had few darker stools yesterday, but none today. She has remained hemodynamically stable, feeling stronger, tolerating her liquid diet. OBJECTIVE: VITAL SIGNS: Temperature 98.6, pulse 71, blood pressure 133/88, and oxygen saturation 98% on room air. GENERAL: No acute distress. HEART: Regular rate and rhythm. LUNGS: Clear to auscultation bilaterally. ABDOMEN: Soft, nontender to palpation. EXTREMITIES: No peripheral edema. LABORATORY STUDIES: Hemoglobin 8.6, stable over the past 2 days; WBC 13.4; and platelets 261. Sodium 140; potassium 3.3; BUN 11, which is down from 33 on presentation; creatinine is 0.90; and calcium 9.1. ASSESSMENT AND PLAN: 1. Gastric ulcer with hemorrhage, status post endoscopic intervention with epinephrine injection and electrocautery on 02/25/2019. 2. Acute blood loss anemia, stable following initial transfusion last week. The patient has had no further evidence of overt gastrointestinal bleeding over the weekend. Expect she may still have some slow oozing from this ulcer chronically as it heals over the next few weeks. She has transition to Protonix 40 mg p.o. twice daily, and this needs to be continued for the foreseeable future, at least until endoscopic follow up in a couple of months. Also she needs to avoid NSAIDs, and hopefully the steroids can be tapered off soon as well. We will see her back in clinic in the next few weeks with repeat CBC, and plan to schedule repeat esophagogastroduodenoscopy afterward. From a GI perspective, the patient could potentially be discharged from the hospital today. GI will sign off, but please call back anytime with questions or concerns. Job ID: [id number]
--- NOTE | 2019-03-02 16:07 | DIS ---
DATE OF ADMISSION: 02/23/2019 DATE OF DISCHARGE: 03/02/2019 PRIMARY CARE PHYSICIAN: Dr. Green at [facility]. REASON FOR ADMISSION: Altered mental status, decreased responsiveness and hypotension. DIAGNOSES AT DISCHARGE: 1. Gastric ulcer with gastrointestinal bleed, resolved. 2. Acute hemorrhagic shock, resolved. 3. Acute encephalopathy, resolved. 4. Chronic prednisone use. 5. Acute respiratory failure, resolved. 6. Hypertension. 7. Anemia due to acute blood loss, stable. PROCEDURES: 1. CT of the brain showing no acute intracranial abnormality. 2. CT angiography of the chest and thorax showing no evidence of pulmonary emboli. Prominent vascular calcifications of the coronary arteries. Mild cardiomegaly. No other significant abnormalities. 3. EGD showing a 2 cm deep gastric ulcer in the proximal stomach on the lesser curvature with visible vessel bleeding, treated with epinephrine submucosally followed by electrocautery of visible vessel. 4. Repeat EGD showing continued good hemostasis. CONSULTATIONS: 1. Pulmonology, Dr. Vargas. 2. Gastroenterology, Dr. Alva. SUMMARY OF HOSPITAL COURSE: This is a 63-year-old female who is being treated for a chronic headache, possibility of giant cell arteritis and placed on steroids about 2 months ago. She had a temporal artery biopsy 2 weeks ago that eventually was declared normal. Had previously been on 2 months of 60 mg of prednisone with some psychiatric side effects of feeling very jittery, having trouble sleeping, waking up with strange dreams, recently decreased to 40 mg a day two weeks prior and then patient had skipped a dose prior to her admission. She was at home, was complaining of severe headaches and dizziness and had a syncopal event. On further history from the family in the hospital later, they also reported that she actually had some abdominal pain and some nausea for the last 2 weeks as well. This was not initially reported when she presented to the hospital. She became confused and disoriented at home. The ambulance picked her up, was going to take her to [facility]. However, her systolic blood pressure dropped into the 60s and she remained hypotensive, so she was brought to the nearest ER, which was ours. She was intubated in the emergency room for protection of her airway. She received normal saline and Decadron and was admitted to the ICU. Her blood pressures did come up and she remained stable in the ICU. The patient was thought possibly to be having some adrenal insufficiency initially. She was extubated the next day and was doing well, but then early the next morning, she developed recurrence of her midepigastric abdominal pain, nausea, and then vomited a large amount of blood. The patient had multiple units of packed red blood cells transfused and Dr. Alva was consulted. He did the EGD with the above results and stopped her bleeding. She had stable blood counts after this. Repeat EGD showed a well cauterized ulcer base without any visible blood vessel and no bleeding. Due to her negative temporal lobe biopsy and the ulcers secondary to her prednisone use, the patient was titrated down her prednisone during hospitalization with no resulting side effects. She was down to 20 mg by the time of discharge. She was also continued on twice a day Protonix. On the day of discharge, the patient was cleared for discharge by Gastroenterology. Her blood counts were stable. She was feeling a little bit unsteady on her feet. However, her is going to take off work for the next few weeks and be with her whenever she moves around. They do have a walker at the house that she can use for the next couple of weeks until she recovers back to her baseline functional status. DISCHARGE MANAGEMENT: Discharged home. FOLLOWUP: Follow up with Dr. Green as previously scheduled on the of this month and with Dr. Alva in 2 weeks. ACTIVITY: As tolerated. DIET: Regular diet. MEDICATIONS: 1. Protonix 40 mg twice a day, 60 tablets dispensed. 2. Prednisone 5 mg tablets for a taper over the next 25 days. 3. Ferrous sulfate 325 mg daily, 30 tablets dispensed. 4. Acetaminophen as needed. 5. Atorvastatin 40 mg daily. 6. Caltrate 600 Plus vitamin D one tablet daily. 7. Flexeril 10 mg at night as needed. 8. Lexapro 10 mg daily. 9. Amitiza 24 mcg twice a day as needed for constipation. 10. Tramadol as needed for pain. 11. Ambien 5 mg at night as needed for insomnia. Arranging the details of this discharge took 35 minutes. Job ID: [id number]
[2019-03-02 18:08] LABS: H. pylori IgA ABS Less than 9.0 units (0.0-8.9); H. pylori IgG ABS 5.14 (0.00-0.79); H. pylori IgM ABS Less than 9.0 units (0.0-8.9)
--- NOTE | 2019-03-03 09:15 | EEG ---
Referring Physician: Génesis MARVIN EEG # 20-06 TEST TYPE: ROUTINE PORTABLE INPATIENT REPORT: AN EEG USING THE INTERNATIONAL TEN-TWENTY SYSTEM OF ELECTRODE PLACEMENT WAS PERFORMED. The waking background is an 8 hertz alpha frequency. The patient remained awake throughout the study. Photic stimulation was unremarkable. No epileptiform features were seen. IMPRESSION: THIS IS A NORMAL AWAKE EEG. Marketing Support Coordinator: KAREN Private Eye: [email or web address]
== END 2019-03-02 15:07 | disposition home or self-care (01) | DRG 314 ==
LOC: ERS 19:32 → CCU 19:42 → T4-A 02-26 18:07
PROVIDERS: ADMIT Hospitalist; ATTEND Hospitalist
PROC: 0BH17EZ Insertion of Endotracheal Airway into Trachea, Via Natural or Artificial Opening (ICD-10-PCS; 2019-02-23)
PROC: 5A1935Z Respiratory Ventilation, Less than 24 Consecutive Hours (ICD-10-PCS; 2019-02-23)
PROC: 0W3P8ZZ Control Bleeding in Gastrointestinal Tract, Via Natural or Artificial Opening Endoscopic (ICD-10-PCS; principal; 2019-02-25)
PROC: 0W3P8ZZ Control Bleeding in Gastrointestinal Tract, Via Natural or Artificial Opening Endoscopic (ICD-10-PCS; 2019-02-26)
DX: I95.9 Hypotension, unspecified (principal); K25.4 Chronic or unspecified gastric ulcer with hemorrhage; J96.00 Acute respiratory failure, unspecified whether with hypoxia or hypercapnia; R57.8 Other shock; E27.40 Unspecified adrenocortical insufficiency; D62 Acute posthemorrhagic anemia; G93.40 Encephalopathy, unspecified; Z68.41 Body mass index [BMI] 40.0-44.9, adult; E78.5 Hyperlipidemia, unspecified; E78.00 Pure hypercholesterolemia, unspecified; I10 Essential (primary) hypertension; E66.01 Morbid (severe) obesity due to excess calories; E87.6 Hypokalemia; Z90.49 Acquired absence of other specified parts of digestive tract; Z87.891 Personal history of nicotine dependence; Z99.81 Dependence on supplemental oxygen
CPT/HCPCS: 31500; 36415; 36430; 36556; 51702; 70450; 71045; 71275; 80048; 80053; 80306; 80307; 81003; 81015; 82140; 82550; 82805; 83605; 83690; 83735; 83880; 84443; 84484; 85014; 85018; 85025; 85610; 85730; 86850; 86900; 86901; 87040; 93005; 94002; 94003; 95816; 95819; 96361; 96365; 96366; 96368; 96374; 96375; 96376; 99292; B4087; C9113; J0171; J0360; J0692; J0696; J1100; J1650; J1956; J2001; J2250; J2405; J2704; J2920; J3010; J3490; J7512; P9016; Q9967; S0028